=== PATIENT | male | born 1955 | race Two or more races ===

== ENCOUNTER 2017-08-07 19:42 | Emergency (ER) | payer OTHER ==
[~2017-08-07] VITALS: Ht 157.5 cm; Wt 88.0 kg
[~2017-08-07 19:42] MED LIST: CALTRATE 600 W-1 TAB; DIOVAN40 MG; IBUPROFEN800 MG PO; ORPH100T PO; VITAMIN D1000 UNIT
== END 2017-08-07 21:40 | disposition home or self-care (01) ==
LOC: ER 19:42
DX: B34.9 Viral infection, unspecified (principal)

== ENCOUNTER 2017-08-13 07:24 | Outpatient (CLI) | payer OTHER | END 2017-08-13 07:44 | disposition home or self-care (01) | LOC: NUCLEAR 07:24 | DX: R07.89 Other chest pain (principal) | CPT/HCPCS: 78452; 93017; A9500 ==

== ENCOUNTER 2021-12-05 07:17 | Outpatient (CLI) | payer OTHER | END 2021-12-05 07:24 | disposition home or self-care (01) | LOC: NUCLEAR 07:17 | PROVIDERS: ATTEND Internal Medicine Cardiovascular Disease | DX: R07.89 Other chest pain (principal) | CPT/HCPCS: 78452; 93017; A9500 ==

== ENCOUNTER → 2022-09-12 | Outpatient (CLI) | payer OTHER | END | disposition home or self-care (01) | LOC: NUCLEAR 14:13 | PROVIDERS: ATTEND Specialist | DX: I82.623 Acute embolism and thrombosis of deep veins of upper extremity, bilateral (principal) ==

== ENCOUNTER 2023-09-17 07:20 | Outpatient (CLI) | payer OTHER | END 2023-09-17 07:22 | disposition home or self-care (01) | LOC: NUCLEAR 07:20 | PROVIDERS: ATTEND Internal Medicine | DX: I20.9 Angina pectoris, unspecified (principal) | CPT/HCPCS: 78452; 93017; A9500 ==

== ENCOUNTER 2024-05-01 08:15 | Outpatient (CLI) | payer OTHER ==
[2024-05-01 09:27] LABS: HEMATOCRIT 40.1 % (39.0-48.0); HEMOGLOBIN 13.4 g/dL (13-16.00); MEAN CELL VOLUME 83.3 fL (80.0-100.00); MEAN CORPUSCULAR HEMOGLOBIN 27.9 pg (27.00-32.0); MEAN CORPUSCULAR HGB CONC 33.5 g/dl (32.0-36.0); PLATELET COUNT 196 K/uL (150-450); RED BLOOD COUNT 4.81 M/uL (4.00-6.00); RED CELL DISTRIBUTION WIDTH 15.7 % (11.5-14.5)
[2024-05-01 10:46] LABS: % SATURACION 13.3 % (20-50); ALBUMIN 3.6 gm/dL (3.4-5.0); BILIRUBIN TOTAL 0.32 mg/dL (0.3-1.2); CALCIUM 8.7 mg/dL (8.5-10.1); CREATININE SERUM 0.84 mg/dL (0.70-1.30); FERRITIN 91.8 NG/ML (26-388); GFR 90.87; GLOBULINA 3.4 G/DL (2.4-3.5); POTASSIUM 4.1 mEq/L (3.5-5.1); T4 FREE 0.87 NG/ML (0.76-1.46); TSH 1.76 uIU/mL (0.358-3.74)
[2024-05-01 11:03] LABS: FOLIC ACID > 20.00 ng/ml (4.78-20)
[2024-05-01 14:30] LABS: MANUAL PLATELET COUNT 228
[2024-05-01 14:31] LABS: PLATELET ESTIMATE NORMAL (NORMAL)
[2024-05-04 16:29] LABS: ANTI THYROID PEROXIDASE < 9 IU/mL (0-34); ERYTHROPOIETIN 11.5 mIU/mL (2.6-18.5); TRANSFERIN 201 mg/dL (177-329); hgb a 97.3 % (96.4-98.8); hgb a2 2.7 % (1.8-3.2); hgb f 0 % (0.0-2.0); hgb s 0 % (0.0)
[2024-05-05 09:10] LABS: g6pd quant 272 (127-427); rbc 4.93 x10E6/uL (4.14-5.80)
[2024-05-06 15:07] LABS: PARIETAL CELL ANTIBODIES 24.3 Units (0.0-20.0)
== END 2024-05-01 11:54 | disposition home or self-care (01) ==
LOC: LAB 08:15
PROVIDERS: ATTEND Internal Medicine Hematology & Oncology
DX: C64.1 Malignant neoplasm of right kidney, except renal pelvis (principal); I10 Essential (primary) hypertension; E78.2 Mixed hyperlipidemia; J45.998 Other asthma; D51.1 Vitamin B12 deficiency anemia due to selective vitamin B12 malabsorption with proteinuria; D50.8 Other iron deficiency anemias; R79.9 Abnormal finding of blood chemistry, unspecified; R74.02 Elevation of levels of lactic acid dehydrogenase [LDH]; K76.89 Other specified diseases of liver; D51.0 Vitamin B12 deficiency anemia due to intrinsic factor deficiency; D63.1 Anemia in chronic kidney disease; E03.8 Other specified hypothyroidism; E06.3 Autoimmune thyroiditis

== ENCOUNTER 2024-09-08 08:24 | Outpatient (CLI) | payer OTHER ==
[2024-09-08 08:58] LABS: HEMATOCRIT 38.1 % (39.0-48.0); HEMOGLOBIN 12.9 g/dL (13-16.00); MEAN CELL VOLUME 81.2 fL (80.0-100.00); MEAN CORPUSCULAR HEMOGLOBIN 27.5 pg (27.00-32.0); MEAN CORPUSCULAR HGB CONC 33.8 g/dl (32.0-36.0); PLATELET COUNT 181 K/uL (150-450); RED BLOOD COUNT 4.69 M/uL (4.00-6.00); RED CELL DISTRIBUTION WIDTH 16.3 % (11.5-14.5)
[2024-09-08 09:31] LABS: ALBUMIN 3.2 gm/dL (3.4-5.0); BILIRUBIN TOTAL 0.54 mg/dL (0.3-1.2); CREATININE SERUM 0.89 mg/dL (0.70-1.30); GFR 84.75; GLOBULINA 3.7 G/DL (2.4-3.5); POTASSIUM 4.25 mEq/L (3.5-5.1); TOTAL PROTEIN 6.9 gm/dL (6.4-8.2)
[2024-09-08 09:48] LABS: MANUAL PLATELET COUNT 250
[2024-09-08 09:50] LABS: PLATELET ESTIMATE NORMAL (NORMAL)
== END 2024-09-08 08:34 | disposition home or self-care (01) ==
LOC: LAB 08:24
PROVIDERS: ATTEND Internal Medicine Hematology & Oncology
DX: C64.1 Malignant neoplasm of right kidney, except renal pelvis (principal); I10 Essential (primary) hypertension; E78.2 Mixed hyperlipidemia; J45.998 Other asthma; D51.1 Vitamin B12 deficiency anemia due to selective vitamin B12 malabsorption with proteinuria; D50.8 Other iron deficiency anemias; R79.9 Abnormal finding of blood chemistry, unspecified; R74.02 Elevation of levels of lactic acid dehydrogenase [LDH]; K76.89 Other specified diseases of liver; R97.0 Elevated carcinoembryonic antigen [CEA]; R97.8 Other abnormal tumor markers; C25.9 Malignant neoplasm of pancreas, unspecified

== ENCOUNTER → 2025-03-11 09:11 | Outpatient (CLI) | payer OTHER ==
[2025-03-11 10:04] LABS: BASO % 0.1 % (0.1-1.2); EOS # 0.10 (0.04-0.54); EOS % 1.1 % (0.7-7.0); LYMPH # 1.31 (1.18-3.74); LYMPH % 13.8 % (19.3-53.1); MEAN PLATELET VOLUME 9.50 fl (9.4-12.4); MONO # 0.57 (0.24-0.82); MONO % 6.0 % (4.7-12.5); NEUT # 7.47 (1.56-6.13); NEUT % 78.7 % (34.0-71.1); RED CELL DISTRIBUTION WIDTH 15.4 % (11.6-14.4)
[2025-03-11 10:31] LABS: INR 1.03
[2025-03-11 10:41] LABS: % SATURACION 18.7 % (20-50); ALT/SGPT 27.0 U/L (12-78); AST/SGOT 16.0 U/L (15-37); BILIRUBIN TOTAL 0.33 mg/dL (0.3-1.2); BUN CREA RATIO 17.0 (7.0-25.0); CREATININE SERUM 0.94 mg/dL (0.70-1.30); FE 49.0 ug/dl (65-175); GFR 79.57; GLOBULINA 4.0 G/DL (2.4-3.5); GLUCOSE FASTING 87.0 mg/dL (65-100); LDH 128.0 U/L (87-241); OSMOLALITY SERUM 287.0 MOSM/KG (275-295); PROSTATIC SPECIFIC ANTIGEN 0.409 NG/ML (0.010-4.00)
[2025-03-11 11:52] LABS: FOLIC ACID 11.15 ng/ml (4.78-20)
[2025-03-12 11:12] LABS: CA 19-9 6.0 U/mL (0-35); TRANSFERIN 217.0 mg/dL (177-329)
[2025-03-15 13:07] LABS: PARIETAL CELL ANTIBODIES 8.5 Units (0.0-20.0)
[2025-03-15 15:11] LABS: FACTOR VIII ACTIVITY 72.0 % (56-140); VON WILLERBRAND ACTIVITY 86.0 % (50-200); VON WILLERBRAND ANTIGEN 98.0 % (50-200)
[2025-03-16 09:11] LABS: VITAMIN K 0.48 ng/mL (0.10-2.20)
== END | disposition home or self-care (01) ==
LOC: LAB 09:11
PROVIDERS: ATTEND Internal Medicine Hematology & Oncology
DX: D50.8 Other iron deficiency anemias (principal); R79.9 Abnormal finding of blood chemistry, unspecified; I10 Essential (primary) hypertension; R74.02 Elevation of levels of lactic acid dehydrogenase [LDH]; K76.89 Other specified diseases of liver; D51.1 Vitamin B12 deficiency anemia due to selective vitamin B12 malabsorption with proteinuria; D51.0 Vitamin B12 deficiency anemia due to intrinsic factor deficiency; D68.8 Other specified coagulation defects; E56.1 Deficiency of vitamin K; D66 Hereditary factor VIII deficiency; C25.9 Malignant neoplasm of pancreas, unspecified; R97.8 Other abnormal tumor markers; R97.0 Elevated carcinoembryonic antigen [CEA]; R97.20 Elevated prostate specific antigen [PSA]; C64.1 Malignant neoplasm of right kidney, except renal pelvis; E78.2 Mixed hyperlipidemia; J45.998 Other asthma